=== PATIENT | male | born 1985 | race Caucasian/White ===

== ENCOUNTER 2018-12-10 07:14 | Emergency (ER) | payer SELFPAY ==
[~2018-12-10] VITALS: Ht 172.7 cm; Wt 92.5 kg
[~2018-12-10 07:14] MED LIST: BEN25 PO; BEN50 PO; HYDR-3029 PO; HYDR120L2 TP; MED4DP PO; NAPR-688 PO; RANI150T35 PO
[2018-12-10 07:17] VITALS: BP 117/82; PULSE 86; RESP 20; Ht 172.7 cm; Wt 92.5 kg
[2018-12-10] MEDS ORDERED: DEXAMETHASONE 10 MG/ML 1 ML INJ IM ONE (08:00)
[2018-12-10] MEDS ORDERED: DIPHENHYDRAMINE 25 MG CAP PO ONE (08:00)
--- NOTE | 2018-12-10 08:18 | ERD ---
ER Documentation Chief Complaint Chief Complaint itchiness - allergic reaction HPI 33-year-old male presenting with allergy and rash times last night. He has never had this before and has not taken medications for his symptoms. Denies any shortness of breath or trouble swallowing. No facial swelling. States that the rash is very itchy is located on his face arms and neck. Denies medical problems. NKDA. Surgical history denies. Social history denies ROS All systems reviewed and are negative except as per history of present illness. Medications Home Meds Active Scripts Methylprednisolone* (Medrol* DOSE PACK) 4 Mg/Dose-Pack Tab.ds.pk, 4 MG PO . DIRECTED, #1 PACKET Prov:HARVINDER CARCAMO PA-C 12/10/18 Diphenhydramine Hcl* (Benadryl*) 25 Mg Cap, 25 MG PO Q6, #30 CAP Prov:HARVINDER CARCAMO PA-C 12/10/18 Hydroxyzine Hcl* (Hydroxyzine Hcl*) 10 Mg Tablet, 10 MG PO Q6H PRN for ANXIETY, #30 TAB Prov:HARVINDER CARCAMO PA-C 10/21/14 Naproxen* (Naproxen*) 500 Mg Tablet, 500 MG PO BID PRN for PAIN, #30 TAB Prov:HARVINDER CARCAMO PA-C 10/21/14 Allergies Allergies: Coded Allergies: No Known Drug Allergies (Verified Allergy, 03/12/13) PMhx/Soc Medical and Surgical Hx: pt denies Medical Hx, pt denies Surgical Hx Hx Alcohol Use: No Hx Substance Use: No Hx Tobacco Use: No Smoking Status: Never smoker FmHx Family History: No diabetes, No coronary disease, No other Physical Exam Vitals Vital Signs Date Temp Pulse Resp B/P (MAP) Pulse Ox O2 O2 Flow FiO2 Time Delivery Rate 12/10/18 98.1 86 20 117/82 96 07:17 (94) Physical Exam GENERAL: The patient is well-appearing, well-nourished, in no acute distress HEENT: Atraumatic. Conjunctivae are pink. Pupils equal, round, and reactive to light. There is no scleral icterus. Tympanic membranes clear bilaterally. Oropharynx clear. CHEST: Clear to auscultation bilaterally. There are no rales, wheezes or rhonchi. HEART: Regular rate and rhythm. No murmurs, clicks, rubs or gallops. SKIN: Urticarial rash noted arm face and arms. Results 24 hrs Current Medications Medications Dose Sig/Arnold Start Time Status Last (Trade) Ordered Route PRN Stop Time Admin Dose Reason Admin 10 mg ONCE ONCE 12/10/18 DC 12/10/18 Dexamethasone IM 08:00 12/10/18 07:50 (Decadron) 08:01 25 mg ONCE ONCE 12/10/18 DC 12/10/18 Diphenhydrami PO 08:00 12/10/18 07:50 ne HCl 08:01 (Benadryl) Procedures/MDM Course: Benadryl and Decadron given in ED. MDM: 33-year-old male presenting with allergic reaction. I have low suspicion for life-threatening rash. I have low suspicion for bacterial infection. Patient is discharged with supportive medications and told to follow-up with primary care within 1 to 2 days for close evaluation. Patient is told symptoms change or worsen to return immediately to the ER. All questions answered at discharge Departure Diagnosis: Primary Impression: Allergic reaction Condition: Stable Patient Instructions: Allergic Reaction, Other (General) Referrals: [facility] YOU HAVE RECEIVED A MEDICAL SCREENING EXAM AND THE RESULTS INDICATE THAT YOU DO NOT HAVE A CONDITION THAT REQUIRES URGENT TREATMENT IN THE EMERGENCY DEPARTMENT. FURTHER EVALUATION AND TREATMENT OF YOUR CONDITION CAN WAIT UNTIL YOU ARE SEEN IN YOUR DOCTORS OFFICE WITHIN THE NEXT 1-2 DAYS. IT IS YOUR RESPONSIBILITY TO MAKE AN APPOINTMENT FOR FOLOW-UP CARE. IF YOU HAVE A PRIMARY DOCTOR --you should call your primary doctor and schedule an appointment IF YOU DO NOT HAVE A PRIMARY DOCTOR YOU CAN CALL OUR PHYSICIAN REFERRAL HOTLINE AT IF YOU CAN NOT AFFORD TO SEE A PHYSICIAN YOU CAN CHOSE FROM THE FOLLOWING [facility] [address] [facility]. [facility] [address] [facility] [address] [facility] [address] [facility]. [facility] [address] [facility]. [employer] [address] Additional Instructions: FOLLOW UP WITH YOUR PRIMARY CARE PHYSICIAN TOMORROW.Return to this facility if you are not improving as expected. HARVINDER CARCAMO PA-C Dec 10, 2018 08:18
== END 2018-12-10 08:22 | disposition home or self-care (01) ==
LOC: FTE 07:14
DX: L50.0 Allergic urticaria (principal)
CPT/HCPCS: 96372; 99284; J1100

== ENCOUNTER 2018-12-13 19:18 | Emergency (ER) | payer SELFPAY ==
[~2018-12-13] VITALS: Ht 175.3 cm; Wt 91.5 kg
[2018-12-13 19:21] VITALS: Ht 175.3 cm; Wt 91.5 kg
[2018-12-13] MEDS ORDERED: DEXAMETHASONE 10 MG/ML 1 ML INJ IM ONE (20:00)
[2018-12-13] MEDS ORDERED: RANITIDINE 150 MG TAB PO ONE (20:00)
--- NOTE | 2018-12-13 20:23 | ERD ---
ER Documentation Chief Complaint Chief Complaint ALLERGIC REACTION. DIFFUSE RASH. NO RESP DISTRESS. HPI 33-year-old male presented to ED for possible allergic reaction. Patient states he was seen here a week ago for this rash has been on his neck chest and abdomen. Patient was sent home with a prescription for Benadryl and states it only has gotten a little bit better. Patient denies any shortness of breath or chest pain at this time. Patient's O2 sats are 97%. Patient's vitals are within normal limits. Patient denies any past medical history and since the first time this is never happened and it has been lasting over a week. Patient wants to see if he can get any other medication to help out with improvement of the rash. Patient states the rash has not worsened but has improved since his last visit ROS All systems reviewed and are negative except as per history of present illness. Medications Home Meds Active Scripts Hydrocortisone (Hydrocortisone) 114 Gm Lotion, 114 GM TP TID for 7 Days, BOTTLE Prov:STEPHANIE ADLER PA-C 12/13/18 Ranitidine Hcl* (Zantac*) 150 Mg Tablet, 150 MG PO BID PRN for EPIGASTRIC PAIN, #30 TAB Prov:STEPHANIE ADLER PA-C 12/13/18 Diphenhydramine Hcl* (Benadryl*) 50 Mg Cap, 50 MG PO Q6H PRN for ITCHING/RASH, #30 CAP Prov:STEPHANIE ADLER PA-C 12/13/18 Methylprednisolone* (Medrol* DOSE PACK) 4 Mg/Dose-Pack Tab.ds.pk, 4 MG PO . DIRECTED, #1 PACKET Prov:HARVINDER CARCAMO PA-C 12/10/18 Diphenhydramine Hcl* (Benadryl*) 25 Mg Cap, 25 MG PO Q6, #30 CAP Prov:HARVINDER CARCAMO PA-C 12/10/18 Hydroxyzine Hcl* (Hydroxyzine Hcl*) 10 Mg Tablet, 10 MG PO Q6H PRN for ANXIETY, #30 TAB Prov:HARVINDER CARCAMO PA-C 10/21/14 Naproxen* (Naproxen*) 500 Mg Tablet, 500 MG PO BID PRN for PAIN, #30 TAB Prov:HARVINDER CARCAMO PA-C 10/21/14 Allergies Allergies: Coded Allergies: No Known Drug Allergies (Verified Allergy, 03/12/13) PMhx/Soc Medical and Surgical Hx: pt denies Medical Hx, pt denies Surgical Hx Hx Alcohol Use: No Hx Substance Use: No Hx Tobacco Use: No FmHx Family History: No diabetes, No coronary disease, No other Physical Exam Vitals Vital Signs Date Temp Pulse Resp B/P (MAP) Pulse Ox O2 O2 Flow FiO2 Time Delivery Rate 12/13/18 98.4 99 20 141/88 97 19:21 (105) Physical Exam GENERAL: The patient is well-appearing, well-nourished, in no acute distress HEENT: Atraumatic. Conjunctivae are pink. Pupils equal, round, and reactive to light. There is no scleral icterus. Tympanic membranes clear bilaterally. Oropharynx clear. No nystagmus or photophobia. NECK: C-spine is soft and supple. There is no meningismus. There is no cervical lymphadenopathy. CHEST: Clear to auscultation bilaterally. There are no rales, wheezes or rhonchi. HEART: Regular rate and rhythm. No murmurs, clicks, rubs or gallops. SKIN: Erythematous wheal rash located anterior neck chest and abdomen negative Nikolsky sign Results 24 hrs Current Medications Medications Dose Sig/Arnold Start Time Status Last (Trade) Ordered Route PRN Stop Time Admin Dose Reason Admin Ranitidine 150 mg ONCE ONCE 12/13/18 DC 12/13/18 HCl PO 20:00 12/13/18 20:13 (Zantac) 20:01 10 mg ONCE ONCE 12/13/18 DC 12/13/18 Dexamethasone IM 20:00 12/13/18 20:10 (Decadron) 20:01 Procedures/MDM ED course: The patient was stable throughout the ED course. The patient and/or family informed of laboratory and diagnostic imaging results throughout the ED course. Medications given in ER: Decadron Zantac Patient tolerated medication well with no adverse reactions. Patient reported improvement in pain. Medical decision makin-year-old male presented to ED for the second time in a week for a rash. Patient was treated with Benadryl on his last visit and states the rash has improved but still itches and bothers him. Upon examination there is a erythematous wheal rash located on his neck chest and abdomen. Negative Nikolsky sign and patient states the rash has improved. Patient wants to see if there is anything else we can do form. The patient was given a Decadron injection and Zantac during his ED visit. Benadryl was withheld because he said he stated he took it before he came here. The patient is afebrile and in no respiratory distress. At this time I have low suspicion for anaphylactic reaction, Deal-Jesus syndrome, levy, airway obstruction. I advised the patient to continue taking the medication and I will give him additional prescription for hydrocortisone topical and Zantac to help improve the symptoms. Advised patient follow-up with primary care provider in 1 to 2 days regarding this visit. Advised patient symptoms worsen return to ER immediately Prescription for home: Zantac Benadryl Hydrocortisone topical I have discussed with the patient proper use and common side effects to expert with the medication . I advised the patient/family to speak with the pharmacist dispensing the medication to be advised of any potential drug interactions with other medication or supplements they may be taking. Discharge: At this time, patient is stable for discharge and outpatient management. I have instructed the patient to follow-up with his\her primary care physician in 1 to 2 days. I have discussed with the patient the possibility of needing to see a specialist for further work-up and imaging studies if symptoms persist. I have instructed the patient to promptly return to the ER for any new or worsening symptoms including increased pain, fever, nausea, vomiting, weakness or LOC. The patient and\or family expressed understanding of and agreement with this plan. All questions were answered. Home care instructions were provided. Disclaimer: Inadvertent spelling and grammatical errors are likely due to EHR\dictation software use and do not reflect on the overall quality of patient care. Also, please note that the electronic time recorded on the note does not necessarily reflect the actual time of the patient encounter. Departure Diagnosis: Primary Impression: Allergic reaction Encounter type: subsequent encounter Qualified Codes: T78.40XD - Allergy, unspecified, subsequent encounter Condition: Stable Patient Instructions: First Aid: Allergic Reactions Referrals: [facility] YOU HAVE RECEIVED A MEDICAL SCREENING EXAM AND THE RESULTS INDICATE THAT YOU DO NOT HAVE A CONDITION THAT REQUIRES URGENT TREATMENT IN THE EMERGENCY DEPARTMENT. FURTHER EVALUATION AND TREATMENT OF YOUR CONDITION CAN WAIT UNTIL YOU ARE SEEN IN YOUR DOCTORS OFFICE WITHIN THE NEXT 1-2 DAYS. IT IS YOUR RESPONSIBILITY TO MAKE AN APPOINTMENT FOR FOLOW-UP CARE. IF YOU HAVE A PRIMARY DOCTOR --you should call your primary doctor and schedule an appointment IF YOU DO NOT HAVE A PRIMARY DOCTOR YOU CAN CALL OUR PHYSICIAN REFERRAL HOTLINE AT IF YOU CAN NOT AFFORD TO SEE A PHYSICIAN YOU CAN CHOSE FROM THE FOLLOWING [facility] [address] [facility] [address] [facility] [address] [facility] [address] [facility] [address] [facility] [facility] [address] [facility]. [facility] YOU HAVE RECEIVED A MEDICAL SCREENING EXAM AND THE RESULTS INDICATE THAT YOU DO NOT HAVE A CONDITION THAT REQUIRES URGENT TREATMENT IN THE EMERGENCY DEPARTMENT. FURTHER EVALUATION AND TREATMENT OF YOUR CONDITION CAN WAIT UNTIL YOU ARE SEEN IN YOUR DOCTORS OFFICE WITHIN THE NEXT 1-2 DAYS. IT IS YOUR RESPONSIBILITY TO MAKE AN APPOINTMENT FOR FOLOW-UP CARE. IF YOU HAVE A PRIMARY DOCTOR --you should call your primary doctor and schedule and appointment IF YOU DO NOT HAVE A PRIMARY DOCTOR YOU CAN CALL OUR PHYSICIAN REFERRAL HOTLINE AT . IF YOU CAN NOT AFFORD TO SEE A PHYSICIAN YOU CAN CHOSE FROM THE FOLLOWING [facility]: [facility] [address] [place] [address] [facility] [address] [place] [address] [facility] [address] [place] [address] Additional Instructions: Call your primary care doctor TOMORROW for an appointment during the next 1-2 days.See the doctor sooner or return here if your condition worsens before your appointment time. STEPHANIE ADLER PA-C Dec 13, 2018 20:23
[2018-12-13 20:32] VITALS: BP 132/87; PULSE 75; RESP 18
== END 2018-12-13 20:33 | disposition home or self-care (01) ==
LOC: FTE 19:18
DX: T78.40XD Allergy, unspecified, subsequent encounter (principal)
CPT/HCPCS: 99283; J1100